=== PATIENT | male | born 1980 | race Caucasian/White ===

== ENCOUNTER 2018-03-30 10:58 | Day surgery (SDC) | payer MEDICARE, MEDICAID ==
[~2018-03-30] VITALS: Ht 172.7 cm; Wt 103.6 kg
[~2018-03-30 10:58] MED LIST: ARIP2TAB3 PO; DIPH-423 PO; ESCI20TA17; LAMO5TAB3 PO; MIN5C PO; OMEP-84 PO; ZOLP5TAB8 PO
[2018-03-30 11:10] VITALS: BP 121/86
[2018-03-30] MEDS ORDERED: METO-292 PO (11:29)
[2018-03-30] MEDS ORDERED: LORA10CA9 (11:30)
[2018-03-30] MEDS ORDERED: MELA1TAB17 PO (11:31)
[2018-03-30] MEDS ORDERED: HYDR50TA65 PO (11:31)
[2018-03-30] MEDS ORDERED: PRAZ2CAP2 PO (11:32)
[2018-03-30] MEDS ORDERED: CARB300C6 PO (11:33)
[2018-03-30] MEDS ORDERED: GABA600T2 PO (11:34)
[2018-03-30] MEDS ORDERED: vitamin d2 (11:35)
[2018-03-30] MEDS ORDERED: ESCI20TA38 PO (11:36)
[2018-03-30] MEDS ORDERED: ARIP15TA8 PO (11:37)
[2018-03-30] MEDS ORDERED: ASPI1TAB14 (11:38)
[2018-03-30] MEDS ORDERED: LISI-604 PO (11:38)
[2018-03-30] MEDS ORDERED: GLUC100017 (11:39)
[2018-03-30] MEDS ORDERED: MULT-1085 PO (11:39)
[2018-03-30] MEDS ORDERED: IBUP-1986 PO (11:40)
[2018-03-30] MEDS ORDERED: fentaNYL/PF 50MCG/1 ML 2ML syringe ONE (12:17)
[2018-03-30] MEDS ORDERED: MIDAZolam 5mg/5ml vial ONE (12:18)
[2018-03-30] MEDS ORDERED: LIDOcaine Viscous 15ml cup ONE (12:18)
[2018-03-30 12:43] VITALS: BP 109/58
[2018-03-30 12:53] VITALS: BP 112/68
[2018-03-30 13:03] VITALS: BP 113/55
[2018-03-30 13:13] VITALS: BP 103/69
== END 2018-03-30 13:30 | disposition home or self-care (01) ==
LOC: GI LAB 10:58
PROVIDERS: ATTEND Internal Medicine Gastroenterology
DX: K29.50 Unspecified chronic gastritis without bleeding (principal); K31.89 Other diseases of stomach and duodenum; I10 Essential (primary) hypertension; G47.33 Obstructive sleep apnea (adult) (pediatric); M19.90 Unspecified osteoarthritis, unspecified site; F31.9 Bipolar disorder, unspecified; F12.90 Cannabis use, unspecified, uncomplicated; L40.8 Other psoriasis; Z87.11 Personal history of peptic ulcer disease; Z87.891 Personal history of nicotine dependence; Z79.82 Long term (current) use of aspirin; Z79.1 Long term (current) use of non-steroidal anti-inflammatories (NSAID); Z79.891 Long term (current) use of opiate analgesic; Z79.899 Other long term (current) drug therapy; Z98.890 Other specified postprocedural states
CPT/HCPCS: 43239; J2250; J3010; J7030; 99152; A4620

== ENCOUNTER 2018-07-19 17:37 | Emergency (ER) | payer MEDICARE, MEDICAID ==
[~2018-07-19] VITALS: Ht 170.2 cm; Wt 91.0 kg
[~2018-07-19 17:37] MED LIST changes: +ARIP15TA8 PO; -ARIP2TAB3 PO; +ASPI1TAB14; +CARB300C6 PO; -ESCI20TA17; +ESCI20TA38 PO; +GABA600T13 PO; +GLUC100017; +HYDR50TA65 PO; +IBUP-1986 PO; -LAMO5TAB3 PO; +LISI-604 PO; +LORA10CA9; +MELA1TAB17 PO; +METO-292 PO; -MIN5C PO; +MULT-1085 PO; -OMEP-84 PO; +PRAZ2CAP2 PO; -ZOLP5TAB8 PO; +vitamin d2
--- NOTE | 2018-07-19 19:53 | NUR ---
THROAT SWAB COLLECTED AND SENT TO LAB, PT TOLERATED WELL.
[2018-07-19] MEDS ORDERED: LIDO20SO16 PO (20:24)
[2018-07-19 20:41] VITALS: BP 115/78
== END 2018-07-19 20:42 | disposition home or self-care (01) ==
LOC: ER 17:37
DX: J02.9 Acute pharyngitis, unspecified (principal); I10 Essential (primary) hypertension; F32.9 Major depressive disorder, single episode, unspecified; F17.200 Nicotine dependence, unspecified, uncomplicated; F12.10 Cannabis abuse, uncomplicated; Z87.11 Personal history of peptic ulcer disease; Z79.899 Other long term (current) drug therapy
CPT/HCPCS: 87081; 87880; 99283

== ENCOUNTER 2019-02-22 14:43 | Emergency (ER) | payer MEDICARE, MEDICAID ==
[~2019-02-22] VITALS: Ht 170.2 cm; Wt 97.0 kg
[~2019-02-22 14:43] MED LIST changes: -CARB300C6 PO; +CARB300C9 PO; +LIDO20SO16 PO
[2019-02-22 15:31] LABS: BASOPHILS % (AUTO) 0.5 % (0-1); EOSINOPHILS % (AUTO) 0.5 % (0-6); HEMATOCRIT 37.1 % (42.0-52.0); HEMOGLOBIN 12.8 g/dl (14.0-17.9); LYMPHOCYTES # (AUTO) 1.1 X10'3 (1.1-4.8); LYMPHOCYTES % (AUTO) 10.6 % (21-51); MEAN CORPUSCULAR HEMOGLOBIN 29.1 PG (27.0-31.0); MEAN CORPUSCULAR HGB CONC 34.3 g/dL (33.0-36.5); MEAN CORPUSCULAR VOLUME 84.7 FL (78-98); MEAN PLATELET VOLUME 7.3 FL (7.4-10.4); MONOCYTES # (AUTO) 0.7 X10'3 (0-0.9); MONOCYTES % (AUTO) 6.9 % (2-12); NEUTROPHILS # (AUTO) 8.4 X10'3 (1.8-7.7); NEUTROPHILS % (AUTO) 81.5 % (42-75); PLATELET COUNT 235 X10'3 (140-440); RED BLOOD COUNT 4.39 X10'6 (4.70-6.10); RED CELL DISTRIBUTION WIDTH 13.3 % (11.5-14.5); WHITE BLOOD COUNT 10.3 X10'3 (4.5-11.0)
[2019-02-22] MEDS ORDERED: LIDOcaine Viscous 15ml cup MM STA (15:39)
[2019-02-22] MEDS ORDERED: diphenhydrAMINE 25 MG/10 ML UD oral solution PO ONE (15:40)
[2019-02-22] MEDS ORDERED: famotidine/PF 10 mg/ml inj IV ONE (15:40)
[2019-02-22] MEDS ORDERED: ketorolac tromethamine 15mg/ml inj. IV ONE (15:40)
[2019-02-22] MEDS ORDERED: mag hydrox/Alum hydrox/simeth 30ml oral suspension PO ONE (15:40)
[2019-02-22] MEDS ORDERED: normal saline 1000ML IV soln IVB ONE (15:40)
[2019-02-22 15:44] LABS: ALANINE AMINOTRANSFERASE 22 U/L (12-78); ALBUMIN 3.5 G/DL (3.4-5.0); ALBUMIN/GLOBULIN RATIO 1.3 (1.1-1.5); ALKALINE PHOSPHATASE 80 IU/L (46-116); ANION GAP 10 (8-16); ASPARTATE AMINO TRANSFERASE 11 U/L (10-37); BILIRUBIN,TOTAL 0.2 MG/DL (0.1-1.0); BLOOD UREA NITROGEN 15 MG/DL (7-18); BUN/CREATININE RATIO 15.5 (5.4-32.0); CALCIUM 8.2 MG/DL (8.5-10.1); CHLORIDE 107 MMOL/L (99-107); CREATININE 0.97 MG/DL (0.60-1.10); GLUCOSE 112 MG/DL (70-104); LIPASE 61 U/L (73-393); SODIUM 141 MMOL/L (135-145); TOTAL CARBON DIOXIDE 23.8 MMOL/L (24-32); TOTAL PROTEIN 6.3 G/DL (6.4-8.2); eGFR 86 ML/MIN
[2019-02-22 16:09] LABS: CLARITY,URINE CLEAR (Clear); COLOR,URINE YELLOW (Yellow); GLUCOSE, URINE NEGATIVE (Neg); KETONES,URINE NEGATIVE (Neg); LEUKOCYTE ESTERASE ,URINE NEGATIVE (Neg); NITRITES, URINE NEGATIVE (Neg); OCCULT BLOOD,URINE NEGATIVE (Neg); PH,URINE 5.5 (4.8-8.0); PROTEIN,URINE NEGATIVE (Neg); UA COLLECTION TYPE URINAL; UROBILINOGEN,URINE 0.2 E.U/dL (0.2-1.0)
[2019-02-22 16:25] VITALS: BP 114/65
[2019-02-22] MEDS ORDERED: MISO100T47 PO (17:08)
[2019-02-22] MEDS ORDERED: FAMO-128 PO (17:08)
== END 2019-02-22 17:23 | disposition home or self-care (01) ==
LOC: ER 14:43
DX: R11.2 Nausea with vomiting, unspecified (principal); R10.13 Epigastric pain; I10 Essential (primary) hypertension; F12.90 Cannabis use, unspecified, uncomplicated; F31.9 Bipolar disorder, unspecified; Z87.11 Personal history of peptic ulcer disease; Z98.890 Other specified postprocedural states; Z79.82 Long term (current) use of aspirin; Z79.899 Other long term (current) drug therapy
CPT/HCPCS: 36415; 80053; 81003; 83690; 85025; 96361; 96374; 96375; 99283; J1885; J3490; J7030; Q0163